=== PATIENT | female | born 1950 | race Caucasian/White ===

== ENCOUNTER → 2024-10-16 07:23 | Outpatient (REF) | payer MEDICARE, MEDICAID, SELFPAY | LOC: WDC 07:23 | PROVIDERS: ATTENDING PHYSICIAN Nurse Practitioner Adult Health | DX: Z12.31 Encounter for screening mammogram for malignant neoplasm of breast (principal) | CPT/HCPCS: 77063; 77067 ==

== ENCOUNTER → 2024-11-27 09:29 | Outpatient (REF) | payer MEDICARE, MEDICAID, SELFPAY | LOC: PAVMRI 09:29 | PROVIDERS: ATTENDING PHYSICIAN Nurse Practitioner Adult Health | DX: R42 Dizziness and giddiness (principal) | CPT/HCPCS: 70551 ==